=== PATIENT | male | born 1960 | race Caucasian/White ===

== ENCOUNTER 2018-06-27 15:23 | Observation (INO) | payer OTHER ==
[2018-06-27] MEDS ORDERED: TYLENOL 325 MG PO PRN (16:05)
[2018-06-27 16:53] LABS: BASOPHIL % 0.3 % (0.0-0.4); Basophil (Absolute #) 0.02 (0-0.4); Eosinophil % 2.1 % (0.00-5.0); Eosinophil (Absolute #) 0.16 (0-0.5); Hematocrit 38.7 % (42-50); Hemoglobin 12.7 gm/dl (12.5-18.0); Lymphocyte (Absolute #) 1.61 (1.0-4.6); Lymphocytes % 21.4 % (24.0-44.0); Mean Corpuscular Hemoglobin 30.5 pg (26-32); Mean Corpuscular Hgb Concent. 32.8 g/dl (32-36); Mean Platelet Volume 10.3 fl (6-9.5); Monocyte (Absolute #) 0.84 (0.0-1.3); Monocytes % 11.2 % (0.0-12.0); Platelet Count 250 K/mm3 (150-450); Red Blood Count 4.16 M/mm3 (4.1-5.6); Red Cell Distribution Width 14.2 % (11.5-14.0); White Blood Count 7.5 K/mm3 (4.0-10.5)
[2018-06-27] MEDS ORDERED: DUONEB 0.5-3 MG/3 ml Neb IH PRN (16:54)
[2018-06-27] MEDS: Advair Hfa 115/21 Common canister IH SCH (16:56)
--- NOTE | 2018-06-27 17:01 | XRAY ---
Indication: Bilateral leg swelling. 2-dimensional sonogram and color Doppler imaging of the major venous vessels of the left and right leg was performed. Comparison: None Right leg demonstrates occluding thrombus in the distal femoral and popliteal veins. No other thrombus seen in the remaining examined deep venous vessels of the left and right leg including greater saphenous veins. Patent veins demonstrates normal compressibility. Venous waveforms are normal with and without augmentation. Impression: 1. Right leg DVT in the distal femoral and popliteal veins. 2. Left leg negative for DVT.
[2018-06-27 17:03] LABS: ALBUMIN 3.8 g/dL (3.5-5.0); ALKALINE PHOSPHATASE 82 U/L (38-126); ANION GAP 12.2 MEQ/L (5-15); BLOOD UREA NITROGEN 16 mg/dL (9-20); CHLORIDE 104 mmol/L (98-107); Calcium 9.1 mg/dL (8.4-10.2); Carbon Dioxide 29 mmol/L (22-30); Creatinine 1 0.82 mg/dL (0.66-1.25); Glucose 88 mg/dL (74-106); Potassium 4.9 mmol/L (3.5-5.1); SGOT/AST 29 U/L (17-59); SGPT/ALT 28 U/L (0-50); SODIUM 140 mmol/L (137-145)
[2018-06-27 17:18] LABS: INR 1.12 (0.8-3.0)
[2018-06-27] MEDS: XARELTO 10 MG TABLET PO SCH (17:51)
[2018-06-27] MEDS: Sodium Chloride 0.9% 1000 ML 1,000 ML IV SCH (17:51)
[2018-06-27] MEDS ORDERED: ENOXAPARIN SODIUM SQ SCH (18:00)
[2018-06-27] MEDS: Seroquel 100 MG PO SCH (21:50)
[2018-06-27] MEDS ORDERED: QUETIAPINE FUMARATE 300 MG PO SCH (22:00)
[2018-06-27] MEDS ORDERED: MOTRIN 400 MG PO PRN (22:23)
[2018-06-28] MEDS: Advair Hfa 115/21 Common canister IH SCH (06:21)
[2018-06-28] MEDS: Sodium Chloride 0.9% 1000 ML 1,000 ML IV SCH (06:22)
--- NOTE | 2018-06-28 08:42 | XRAY ---
Indication: Cough, short of breath, and elevated d-dimer. Multiple contiguous axial images obtained through the chest using 80 cc Isovue 370 contrast and PE protocol. Comparison: None There is good opacification of the pulmonary arteries. Nonoccluding thrombi seen in the distal left main pulmonary artery extending into the left upper and left lower lobe segmental branches. Additional nonoccluding thrombi seen throughout the right lung segmental branches. Heart is not enlarged. Aorta is normal in course and caliber. Left hilar calcified nodes. No pathologic mediastinal/hilar lymphadenopathy. Examination of the lung parenchyma demonstrates a few bilateral calcified granulomas and mild bibasilar dependent atelectasis. No suspicious pulmonary mass, infiltrate, consolidation, or effusion. Bony thorax intact with minimal degenerative changes throughout the spine. Limited upper abdomen demonstrates mild fatty liver. Impression: 1. Diffuse bilateral nonoccluding pulmonary emboli. No distal pulmonary infarct. 2. Incidental fatty liver and evidence for old granulomatous disease. Comment: Preliminary report was given immediately following the exam. CT DI 21.96
[2018-06-28] MEDS ORDERED: ENOXAPARIN SODIUM SQ SCH ×2 (10:00→18:00)
[2018-06-28] MEDS: XARELTO 10 MG TABLET PO SCH (11:00)
[2018-06-28] MEDS: Seroquel 100 MG PO SCH (11:10)
--- NOTE | 2018-06-28 12:16 | PCM.SSS ---
History of Present Illness - Chief Complaint Chief Complaint: right leg pain and swelling History of Present Illness: is a 57 year old male.came to office with pain in right leg, for 2 weeks - Review of Systems Constitutional: No Fever, No Chills Eyes: No Symptoms Ears, Nose, & Throat: No Symptoms Respiratory: Orthopnea, Short Of Breath, Wheezing, No Cough Cardiac: No Chest Pain, No Edema, No Syncope Abdominal/Gastrointestinal: No Abdominal Pain, No Nausea, No Vomiting, No Diarrhea Genitourinary Symptoms: No Dysuria Musculoskeletal: No Back Pain, No Neck Pain Skin: No Rash Neurological: No Dizziness, No Focal Weakness, No Sensory Changes Psychological: No Symptoms Endocrine: No Symptoms Hematologic/Lymphatic: No Symptoms Immunological/Allergic: No Symptoms Medications & Allergies Home Medications: Home Medication List Albuterol 8 gm Mdi Hfa [Ventolin Hfa MDI] 2 puff IH QID 06/27/18 [History Confirmed 06/27/18] Fluticasone/Salmeterol [Advair 100-50 Diskus] 1 puff IH DAILY 06/27/18 [History Confirmed 06/27/18] Quetiapine Fumarate [Seroquel] 300 mg PO BID 06/27/18 [History Confirmed ] Allergies/Adverse Reactions: Allergies Allergy/AdvReac Type Severity Reaction Status Date / Time No Known Drug Allergies Allergy Unverified 06/27/18 15:49 - Past Medical History Past Medical History: Yes Neurological History: No Pertinent History ENT History: No Pertinent History Cardiac History: No Pertinent History Respiratory History: Bronchitis, COPD Endocrine Medical History: No Pertinent History Musculoskelatal History: Arthritis GI Medical History: No Pertinent History History: No Pertinent History Pyscho-Social History: Bipolar Male Reproductive Disorders: No Pertinent History Comment: HEP C - Past Surgical History Past Surgical History: Yes Musculskeletal Surgical Hx: Other Other Surgical History: CYST REMOVAL, TENDON RE-ATTACHMENT LEFT FOREARM - Social History Smoking Status: Former smoker Alcohol: None Drug Use: none - Physical Exam Vital Signs: Vital Signs - 24 hr Temp Pulse Resp BP Pulse Ox 06/28/18 12:00 16 06/28/18 08:00 16 06/28/18 07:10 98.3 F 79 16 121/63 92 L 06/28/18 06:22 79 16 92 L 06/28/18 04:00 99.0 F 83 17 105/63 95 06/28/18 00:00 20 06/27/18 23:48 101.2 F 101 H 20 119/57 97 06/27/18 20:19 98.2 F 96 H 22 132/78 98 06/27/18 20:00 22 06/27/18 16:55 92 H 20 97 06/27/18 15:53 98.6 F 91 H 18 123/75 97 06/27/18 15:41 98.6 F 91 H 18 123/75 97 06/27/18 15:39 98.6 F 91 H 18 123/75 97 General Appearance: no apparent distress, alert Neurologic Exam: alert, oriented x 3, cooperative, normal mood/affect, nml cerebellar function, nml station & gait, sensation nml, No motor deficits Eye Exam: PERRL/EOMI, eyes nml inspection Ears, Nose, Throat Exam: normal ENT inspection, TMs normal, pharynx normal, moist mucous membranes Neck Exam: normal inspection, non-tender, supple, full range of motion Respiratory Exam: diminished breath sounds, wheezing, No respiratory distress Cardiovascular Exam: regular rate/rhythm, normal heart sounds, normal peripheral pulses Gastrointestinal/Abdomen Exam: soft, normal bowel sounds, No tenderness, No mass Back Exam: normal inspection, normal range of motion, No CVA tenderness, No vertebral tenderness Extremity Exam: normal inspection, normal range of motion, pelvis stable Skin Exam: normal color, warm, dry, No rash Lymphatic Exam: No adenopathy Results - Labs Lab/Micro Results: Lab Results-Last 24 Hours 06/27/18 06/27/18 06/27/18 Range/Units 16:51 16:51 16:51 WBC 7.5 (4.0-10.5) K/mm3 RBC 4.16 (4.1-5.6) M/mm3 Hgb 12.7 (12.5-18.0) gm/dl Hct 38.7 L (42-50) % MCV 93.0 (78-100) fl MCH 30.5 (26-32) pg MCHC 32.8 (32-36) g/dl RDW 14.2 H (11.5-14.0) % Plt Count 250 (150-450) K/mm3 MPV 10.3 H (6-9.5) fl Gran % 65.0 (36.0-66.0) % Eos # (Auto) 0.16 (0-0.5) Absolute Lymphs (auto) 1.61 (1.0-4.6) Absolute Monos (auto) 0.84 (0.0-1.3) Lymphocytes % 21.4 L (24.0-44.0) % Monocytes % 11.2 (0.0-12.0) % Eosinophils % 2.1 (0.00-5.0) % Basophils % 0.3 (0.0-0.4) % Absolute Granulocytes 4.90 (1.4-6.9) Basophils # 0.02 (0-0.4) PT (8.83-12.87) SECONDS INR (0.8-3.0) APTT (24.1-36.1) SECONDS D-Dimer 6641 H* (215-500) ng/mL Sodium 140 (137-145) mmol/L Potassium 4.9 (3.5-5.1) mmol/L Chloride 104 (98-107) mmol/L Carbon Dioxide 29 (22-30) mmol/L Anion Gap 12.2 (5-15) MEQ/L BUN 16 (9-20) mg/dL Creatinine 0.82 (0.66-1.25) mg/dL Estimated GFR > 60.0 ML/MIN Glucose 88 (74-106) mg/dL Calcium 9.1 (8.4-10.2) mg/dL Total Bilirubin 0.30 (0.2-1.3) mg/dL AST 29 (17-59) U/L ALT 28 (0-50) U/L Alkaline Phosphatase 82 (38-126) U/L Serum Total Protein 7.0 (6.3-8.2) g/dL Albumin 3.8 (3.5-5.0) g/dL 06/27/18 Range/Units 16:51 WBC (4.0-10.5) K/mm3 RBC (4.1-5.6) M/mm3 Hgb (12.5-18.0) gm/dl Hct (42-50) % MCV (78-100) fl MCH (26-32) pg MCHC (32-36) g/dl RDW (11.5-14.0) % Plt Count (150-450) K/mm3 MPV (6-9.5) fl Gran % (36.0-66.0) % Eos # (Auto) (0-0.5) Absolute Lymphs (auto) (1.0-4.6) Absolute Monos (auto) (0.0-1.3) Lymphocytes % (24.0-44.0) % Monocytes % (0.0-12.0) % Eosinophils % (0.00-5.0) % Basophils % (0.0-0.4) % Absolute Granulocytes (1.4-6.9) Basophils # (0-0.4) PT 13.0 H (8.83-12.87) SECONDS INR 1.12 (0.8-3.0) APTT 25.0 (24.1-36.1) SECONDS D-Dimer (215-500) ng/mL Sodium (137-145) mmol/L Potassium (3.5-5.1) mmol/L Chloride (98-107) mmol/L Carbon Dioxide (22-30) mmol/L Anion Gap (5-15) MEQ/L BUN (9-20) mg/dL Creatinine (0.66-1.25) mg/dL Estimated GFR ML/MIN Glucose (74-106) mg/dL Calcium (8.4-10.2) mg/dL Total Bilirubin (0.2-1.3) mg/dL AST (17-59) U/L ALT (0-50) U/L Alkaline Phosphatase (38-126) U/L Serum Total Protein (6.3-8.2) g/dL Albumin (3.5-5.0) g/dL - Radiology Impressions Radiology Exams & Impressions: Radiology Procedures Category Date Time Status CHEST WITH CONTRAST [CT] Urgent Exams 06/27/18 18:15 Completed VENOUS BILATERAL EXTREMITY [US] Stat Exams 06/27/18 16:49 Completed - Other Procedures and Tests Respiratory Therapy 06/27/18 16:55 Respiratory Therapy Assessment DAILY Assessment/Plan (1) Bilateral pulmonary embolism Current Visit: Yes Status: Acute Onset Date: ~06/27/18 Code(s): I26.99 - OTHER PULMONARY EMBOLISM WITHOUT ACUTE COR PULMONALE (2) Bilateral leg pain Current Visit: Yes Status: Acute Onset Date: ~06/27/18 Code(s): M79.604 - PAIN IN RIGHT LEG; M79.605 - PAIN IN LEFT LEG (3) D-dimer, elevated Current Visit: Yes Status: Acute Onset Date: ~06/27/18 Code(s): R79.89 - OTHER SPECIFIED ABNORMAL FINDINGS OF BLOOD CHEMISTRY (4) Localized swelling of both lower legs Current Visit: Yes Status: Acute Onset Date: ~06/27/18 Code(s): R22.43 - LOCALIZED SWELLING, MASS AND LUMP, LOWER LIMB, BILATERAL (5) Right leg DVT Current Visit: Yes Status: Acute Onset Date: ~06/27/18 Qualifiers: Affected thrombotic vein of extremity: popliteal Code(s): I82.401 - ACUTE EMBOLISM AND THOMBOS UNSP DEEP VEINS OF [facility] Summary - Hospital Course Hospital Course: Last Vital Signs Temp 98.3 F 06/28/18 07:10 Pulse 79 06/28/18 07:10 Resp 16 06/28/18 12:00 BP 121/63 06/28/18 07:10 Pulse Ox 92 L 06/28/18 07:10 Allergies No Known Drug Allergies Allergy (Unverified 06/27/18 15:49) Active Medications Acetaminophen (Tylenol 325 Mg) 325 mg PO Q4H PRN PRN PRN Reason: PAIN, FEVER, HEADACHE Stop: 07/27/18 16:04 Last Admin: 06/28/18 00:10 Dose: 325 mg Albuterol/Ipratropium (Duoneb 0.5-3 Mg/3 Ml Neb) 3 ml IH Q4HPRN PRN PRN Reason: SHORTNESS OF BREATH/WHEEZING Stop: 07/27/18 16:53 Sodium Chloride (Sodium Chloride 0.9% 1000 Ml) 1,000 mls @ 100 mls/hr IV .Q10H AYO Stop: 07/27/18 16:14 Last Admin: 06/28/18 06:22 Dose: 100 mls/hr Ibuprofen (Motrin 400 Mg) 400 mg PO QID PRN PRN PRN Reason: PAIN Stop: 07/27/18 22:22 Quetiapine Fumarate (Seroquel 100 Mg) 300 mg PO BID AYO Stop: 07/27/18 21:59 Last Admin: 06/28/18 11:10 Dose: Not Given Rivaroxaban (Xarelto 10 Mg Tablet) 20 mg PO BID [facility] Stop: 07/27/18 18:29 Last Admin: 06/28/18 11:00 Dose: 20 mg Fluticasone/Salmeterol (Advair Hfa 115/21 Common Canister*) 2 puff IH BIDRT [facility] Stop: 07/27/18 18:59 Last Admin: 06/28/18 06:21 Dose: 2 puff Intake & Output 06/28/18 06/29/18 11:59 11:59 Intake Total 1331 Balance 1331 Weight 85 kg Orders 06/27/18 16:05 Place in Observation ROUTINE Acetaminophen 325 mg [Tylenol 325 mg] 325 mg PO Q4H PRN PRN 06/27/18 16:06 Up Ad Belen TOLERATED 06/27/18 16:15 NaCl 0.9% 1000 ml [Sodium Chloride 0.9% 1000 ML] 1,000 ml IV 100 mls/hr 06/27/18 16:54 Albuterol/Ipratropium 3ml Neb* [DUONEB 0.5-3 MG/3 ml Neb] 3 ml IH Q4HPRN PRN 06/27/18 16:55 Pulse Oximetry .spot check Respiratory Therapy Assessment DAILY 06/27/18 18:30 Rivaroxaban 10 mg Tablet [Xarelto 10 mg Tablet] 20 mg PO BID 06/27/18 19:00 Fluticasone/Salmeterol 115/21 [Advair Hfa 115/21 Common canister*] 2 puff IH BIDRT 06/27/18 22:00 Quetiapine Fumarate 100 mg [Seroquel 100 MG] 300 mg PO BID 06/27/18 22:23 Ibuprofen 400 mg [Motrin 400 mg] 400 mg PO QID PRN PRN 06/27/18 Dinner Regular Diet 06/28/18 09:36 Consult Pulmonology ROUTINE 06/28/18 10:57 FIBRINOGEN Routine Protein S Total Antigen Routine Protien C, Total Antigen Routine Lab Tests 06/27/18 06/27/18 06/27/18 16:51 16:51 16:51 WBC 7.5 RBC 4.16 Hgb 12.7 Hct 38.7 L MCV 93.0 MCH 30.5 MCHC 32.8 RDW 14.2 H Plt Count 250 MPV 10.3 H Gran % 65.0 Eos # (Auto) 0.16 Absolute Lymphs (auto) 1.61 Absolute Monos (auto) 0.84 Lymphocytes % 21.4 L Monocytes % 11.2 Eosinophils % 2.1 Basophils % 0.3 Absolute Granulocytes 4.90 Basophils # 0.02 PT INR APTT D-Dimer 6641 H* Sodium 140 Potassium 4.9 Chloride 104 Carbon Dioxide 29 Anion Gap 12.2 BUN 16 Creatinine 0.82 Estimated GFR > 60.0 Glucose 88 Calcium 9.1 Total Bilirubin 0.30 AST 29 ALT 28 Alkaline Phosphatase 82 Serum Total Protein 7.0 Albumin 3.8 06/27/18 16:51 WBC RBC Hgb Hct MCV MCH MCHC RDW Plt Count MPV Gran % Eos # (Auto) Absolute Lymphs (auto) Absolute Monos (auto) Lymphocytes % Monocytes % Eosinophils % Basophils % Absolute Granulocytes Basophils # PT 13.0 H INR 1.12 APTT 25.0 D-Dimer Sodium Potassium Chloride Carbon Dioxide Anion Gap BUN Creatinine Estimated GFR Glucose Calcium Total Bilirubin AST ALT Alkaline Phosphatase Serum Total Protein Albumin - Vitals & Intake/Output Vital Signs: Vital Signs Temperature 98.3 F 06/28/18 07:10 Pulse Rate 79 06/28/18 07:10 Respiratory Rate 16 06/28/18 12:00 Blood Pressure 121/63 06/28/18 07:10 O2 Sat by Pulse Oximetry 92 L 06/28/18 07:10 Intake & Output: Intake & Output 06/26/18 06/27/18 06/28/18 06/29/18 11:59 11:59 11:59 11:59 Intake Total 1331 Balance 1331 Weight 85 kg - Lab Result Diagrams: 06/27/18 16:51 06/27/18 16:51 Lab Results-Last 24 Hrs: Lab Results-Last 24 Hours 06/27/18 06/27/18 06/27/18 Range/Units 16:51 16:51 16:51 WBC 7.5 (4.0-10.5) K/mm3 RBC 4.16 (4.1-5.6) M/mm3 Hgb 12.7 (12.5-18.0) gm/dl Hct 38.7 L (42-50) % MCV 93.0 (78-100) fl MCH 30.5 (26-32) pg MCHC 32.8 (32-36) g/dl RDW 14.2 H (11.5-14.0) % Plt Count 250 (150-450) K/mm3 MPV 10.3 H (6-9.5) fl Gran % 65.0 (36.0-66.0) % Eos # (Auto) 0.16 (0-0.5) Absolute Lymphs (auto) 1.61 (1.0-4.6) Absolute Monos (auto) 0.84 (0.0-1.3) Lymphocytes % 21.4 L (24.0-44.0) % Monocytes % 11.2 (0.0-12.0) % Eosinophils % 2.1 (0.00-5.0) % Basophils % 0.3 (0.0-0.4) % Absolute Granulocytes 4.90 (1.4-6.9) Basophils # 0.02 (0-0.4) PT (8.83-12.87) SECONDS INR (0.8-3.0) APTT (24.1-36.1) SECONDS D-Dimer 6641 H* (215-500) ng/mL Sodium 140 (137-145) mmol/L Potassium 4.9 (3.5-5.1) mmol/L Chloride 104 (98-107) mmol/L Carbon Dioxide 29 (22-30) mmol/L Anion Gap 12.2 (5-15) MEQ/L BUN 16 (9-20) mg/dL Creatinine 0.82 (0.66-1.25) mg/dL Estimated GFR > 60.0 ML/MIN Glucose 88 (74-106) mg/dL Calcium 9.1 (8.4-10.2) mg/dL Total Bilirubin 0.30 (0.2-1.3) mg/dL AST 29 (17-59) U/L ALT 28 (0-50) U/L Alkaline Phosphatase 82 (38-126) U/L Serum Total Protein 7.0 (6.3-8.2) g/dL Albumin 3.8 (3.5-5.0) g/dL 06/27/18 Range/Units 16:51 WBC (4.0-10.5) K/mm3 RBC (4.1-5.6) M/mm3 Hgb (12.5-18.0) gm/dl Hct (42-50) % MCV (78-100) fl MCH (26-32) pg MCHC (32-36) g/dl RDW (11.5-14.0) % Plt Count (150-450) K/mm3 MPV (6-9.5) fl Gran % (36.0-66.0) % Eos # (Auto) (0-0.5) Absolute Lymphs (auto) (1.0-4.6) Absolute Monos (auto) (0.0-1.3) Lymphocytes % (24.0-44.0) % Monocytes % (0.0-12.0) % Eosinophils % (0.00-5.0) % Basophils % (0.0-0.4) % Absolute Granulocytes (1.4-6.9) Basophils # (0-0.4) PT 13.0 H (8.83-12.87) SECONDS INR 1.12 (0.8-3.0) APTT 25.0 (24.1-36.1) SECONDS D-Dimer (215-500) ng/mL Sodium (137-145) mmol/L Potassium (3.5-5.1) mmol/L Chloride (98-107) mmol/L Carbon Dioxide (22-30) mmol/L Anion Gap (5-15) MEQ/L BUN (9-20) mg/dL Creatinine (0.66-1.25) mg/dL Estimated GFR ML/MIN Glucose (74-106) mg/dL Calcium (8.4-10.2) mg/dL Total Bilirubin (0.2-1.3) mg/dL AST (17-59) U/L ALT (0-50) U/L Alkaline Phosphatase (38-126) U/L Serum Total Protein (6.3-8.2) g/dL Albumin (3.5-5.0) g/dL - Radiology Exams Ordered Rad Exams-Entire Visit: Radiology Procedures Category Date Time Status CHEST WITH CONTRAST [CT] Urgent Exams 06/27/18 18:15 Completed VENOUS BILATERAL EXTREMITY [US] Stat Exams 06/27/18 16:49 Completed - Procedures and Test Procedures and Tests throughout Hospitalization: Therapy Orders & Screens 06/27/18 16:26 OT Screen per Nursing Assess Comment: Protocol Order Physician Instructions: Greater than 3 points order OT Admission Screening Reason For Exam: Triggered on Admission Diagnosis: right leg cellulitis Open Wound/Cellutlitis/Pressure Ulcers: Yes Acute Fx/ORIF/Change in wt bearing status: No Severe MUSCULOSKELETAL pain: No ADL Dysfunction: Yes Acute CVA w/Hemiparesis/Hemiplegia: No Decreased Functional Mobility/Strength: No Sprain/Strain: No Acute Post-op Mobility Dysfunction: No Total Points: 8 PT Screen per Nursing Assess ONCE Comment: Protocol Order Physician Instructions: Greater than 3 points order PT Admission Screenin Reason For Exam: Triggered on Admission Diagnosis: right leg cellulitis Open Wound/Cellutlitis/Pressure Ulcers: Yes Acute Fx/ORIF/Change in wt bearing status: No Severe MUSCULOSKELETAL pain: No ADL Dysfunction: Yes Acute CVA w/Hemiparesis/Hemiplegia: No Decreased Functional Mobility/Strength: No Sprain/Strain: No Acute Post-op Mobility Dysfunction: No Total Points: 8 06/27/18 16:54 Respiratory MDI BID Comment: ADVAIR 115/21 BID Diagnosis: right leg cellulitis 06/27/18 16:55 Respiratory Nebulizer UD Comment: DUONEB Q4PRN Diagnosis: right leg cellulitis Respiratory Therapy Assessment DAILY Comment: Diagnosis: right leg cellulitis - Discharge Disposition: Home, Self-Care Condition: Stable Prescriptions: No Action Albuterol 8 gm Mdi Hfa [Ventolin Hfa MDI] 2 puff IH QID Quetiapine Fumarate [Seroquel] 300 mg PO BID Fluticasone/Salmeterol [Advair 100-50 Diskus] 1 puff IH DAILY Follow up with: CHERI LOPEZ MD [Primary Care Provider] - 07/06/18 2:30 pm ([facility])
[2018-06-28 13:19] VITALS: BP 106/62; PULSE 89; O2SAT 95
[2018-06-29 07:52] LABS: FIBRINOGEN 337 mg/dL (180-350)
--- NOTE | 2018-06-29 07:55 | CONS ---
CONSULT DATE: 06/28/2018 REASON FOR CONSULT: Bilateral pulmonary emboli and deep venous thrombosis. HISTORY: Junior Moreno is a 57 year-old male who has been hospitalized with complaints of shortness of breath. The patient reported that he recently got released from assisted. He has been experiencing chest pressure along with shortness of breath. The patient was noted to have a significantly positive D-dimer. A CT chest was obtained that showed bilateral pulmonary emboli along with lower extremity deep venous thrombosis on Doppler's. He has been started on anticoagulation which was switched over to Xarelto last night. He does report improvement in shortness of breath since. The patient denies prior history of deep venous thrombosis, pleural effusion or any common pulmonary problems. PAST MEDICAL HISTORY: The patient reports being bipolar. He is however not regularly followed by a psychiatrist. PAST SURGICAL HISTORY: No recent surgery. PERSONAL AND SOCIAL HISTORY: He is a former smoker. He also used to smoke marijuana however reportedly smoked since being incarcerated six months ago. FAMILY HISTORY: His mother has Factor V Leiden iron deficiency and is on anticoagulation for the same. MEDICATIONS: Home and current medications are reviewed. ALLERGIES: NKDA. ALLERGIES NOTED. PHYSICAL EXAMINATION: This is a middle aged male who appears comfortable. The patient is on room air maintaining good oxygen saturation. Vital signs noted. HEENT: Normocephalic. Oral exam unremarkable. NECK: Supple. CVS: First and second heart sounds are normal, regular, rhythmic. RESPIRATORY: Shows diminished breath sounds, clear to auscultation. ABDOMEN: Soft. EXTREMITIES: No edema is noted. LABORATORY DATA AND TESTS: X-rays and diagnostic tests were all reviewed. REVIEW OF SYSTEMS: Negative for any weight loss in fact the patient has gained weight. He denies any chest pain, any neurologic symptoms or any intestinal symptoms. ASSESSMENT: This is a 57 year old male admitted with: 1) Bilateral pulmonary emboli along with lower extremity deep venous thrombosis. 2) Likely secondary hypercoag state from Factor V Leiden mutation history. 3) History of nicotine addiction. 4) History of bipolar disorder. RECOMMENDATIONS: The patient is doing well on Xarelto. Risks, benefits and precautions to be observed while being on oral anticoagulant for this test. I recommended that the patient be treated for at least six months along with a repeat CT chest as well as venous Doppler's in view of same. If these show complete resolution of clot burden, the patient can be briefly taken off to run diagnostic tests to see if he also suffers from Factor V Leiden deficiency. In which case he would need lifelong anticoagulation. I advised the patient to refrain smoking cigarettes or using illicit drugs. Advised to follow up with me in two weeks or earlier as needed. Will also get pulmonary function test at later point. Thank you for allowing me to participate in the care of this patient.
[2018-07-02 01:27] LABS: Protein S Total Antigen 144 % (84-134)
== END 2018-06-28 16:30 | disposition home or self-care (01) ==
LOC: MED SURG 15:23
PROVIDERS: ADMIT General Practice; ATTEND General Practice
DX: I26.99 Other pulmonary embolism without acute cor pulmonale (principal); M79.605 Pain in left leg; R22.43 Localized swelling, mass and lump, lower limb, bilateral; I82.401 Acute embolism and thrombosis of unspecified deep veins of right lower extremity; L03.115 Cellulitis of right lower limb; B19.20 Unspecified viral hepatitis C without hepatic coma; F31.60 Bipolar disorder, current episode mixed, unspecified
CPT/HCPCS: 36415; 71260; 80053; 85025; 85302; 85305; 85379; 85384; 85610; 85730; 93970; 94640; 94760; G0378; J1650; A9270-GY

== ENCOUNTER 2018-07-22 10:00 | Emergency (ER) | payer OTHER ==
--- NOTE | 2018-07-22 10:27 | ERPHSYRPT ---
- History of Present Illness Time Seen by Provider: 07/22/18 10:19 Source: patient Exam Limitations: no limitations Physician History: The patient is a 57-year-old male with his mother complaining of worsening right lower leg redness and swelling. The patient was diagnosed with a right leg DVT in the distal femoral and popliteal veins per ultrasound done on . Also at that time he had diffuse bilateral nonoccluding pulmonary emboli by chest CT for PE no 06/27/18. He is been taking Xarelto 50 mg twice a day since June 27. In the interim his leg was red and swollen but improved with levofloxacin 750 mg daily. He finished the levofloxacin yesterday. His leg has been less swollen and less red when he keeps it elevated that he was told by his doctor to begin walking. For the past couple days he's been walking more in his leg is now red, warm, and swollen. He is not any more short of breath and he has been over the past month. His past medical history is significant for right leg DVT, bilateral pulmonary emboli. Method of Injury: other (DVT, cellulitis) Occurred: days ago (3) Quality: tightness Severity of Pain-Max: moderate Severity of Pain-Current: moderate Lower Extremities Pain: leg: right Modifying Factors: Improves With: other (elevation) Associated Symptoms: none Allergies/Adverse Reactions: No Known Drug Allergies Allergy (Verified 07/22/18 10:20) Home Medications: Albuterol 8 gm Mdi Hfa [Ventolin Hfa MDI] 2 puff IH QID 06/27/18 [History] Fluticasone/Salmeterol [Advair 100-50 Diskus] 1 puff IH DAILY 06/27/18 [History] Quetiapine Fumarate [Seroquel] 300 mg PO BID 06/27/18 [History] - Review of Systems Constitutional: No Fever, No Chills Eyes: No Symptoms Ears, Nose, & Throat: No Symptoms Respiratory: No Cough, No Dyspnea, No Dyspnea on Exertion (NARANJO) Cardiac: No Chest Pain, No Edema, No Syncope Abdominal/Gastrointestinal: No Abdominal Pain, No Nausea, No Vomiting, No Diarrhea Genitourinary Symptoms: No Dysuria Musculoskeletal: No Back Pain, No Neck Pain Skin: Cellulitis, No Rash Neurological: No Dizziness, No Focal Weakness, No Sensory Changes Psychological: No Symptoms Endocrine: No Symptoms Hematologic/Lymphatic: No Symptoms Immunological/Allergic: No Symptoms All Other Systems: Reviewed and Negative - Past Medical History Pertinent Past Medical History: Yes Neurological History: No Pertinent History ENT History: No Pertinent History Cardiac History: No Pertinent History Respiratory History: Bronchitis, COPD Endocrine Medical History: No Pertinent History Musculoskeletal History: Arthritis GI Medical History: No Pertinent History History: No Pertinent History Psycho-Social History: Bipolar Male Reproductive Disorders: No Pertinent History Other Medical History: HEP C - Past Surgical History Past Surgical History: Yes Musculoskeletal: Other Other Surgical History: CYST REMOVAL, TENDON RE-ATTACHMENT LEFT FOREARM - Social History Smoking Status: Former smoker Drug Use: none - Nursing Vital Signs Nursing Vital Signs: Initial Vital Signs Temperature 97.6 F 07/22/18 10:05 Pulse Rate 78 07/22/18 10:05 Respiratory Rate 20 07/22/18 10:05 Blood Pressure 129/82 07/22/18 10:05 O2 Sat by Pulse Oximetry 97 07/22/18 10:05 Pain Scale Pain Intensity 0 - Physical Exam General Appearance: alert Eyes, Ears, Nose, Throat Exam: moist mucous membranes Neck Exam: non-tender, supple Cardiovascular/Respiratory Exam: chest non-tender, normal breath sounds, regular rate/rhythm, no respiratory distress, No rhonchi, No wheezing Gastrointestinal/Abdominal Exam: non-tender, guarding Back Exam: normal inspection, No vertebral tenderness Hips Exam: bilateral: non-tender, normal inspection Legs Exam: right leg: swelling, other (right lower leg: distal erythema, calf swelling, warmth, posterior tenderness.), left leg: non-tender, normal inspection Knees Exam: bilateral knee: non-tender, normal inspection Ankle Exam: bilateral ankle: non-tender, normal inspection Foot Exam: bilateral foot: non-tender, normal inspection Neuro/Tendon Exam: normal sensation, normal motor functions Mental Status Exam: alert, oriented x 3, cooperative Skin Exam: warm, rash (erythema) SpO2 Interpretation: normal Oxygen Delivery: Room Air - Radiology Ultrasound Exam Right Venous Lower Extremity Ultrasound: discussed w/radiologist (discussed with U/S tech: no change in extent of right leg DVT compared to U/S 06/27/18,) Ordered Tests: Active Orders 24 hr Category Date Time Status IV Insertion STAT Care 07/22/18 10:34 Active Pulse Oximetry (ED) STAT Care 07/22/18 10:34 Active VENOUS UNILAT/LIMITED EXTREMIT [US] Stat Exams 07/22/18 Ordered BLOOD CULTURE Stat Lab 07/22/18 10:50 Received CBC W DIFF Stat Lab 07/22/18 10:45 Completed CMP Stat Lab 07/22/18 10:45 Completed D-DIMER QUANTITATION Stat Lab 07/22/18 10:45 Completed Lactic Acid Stat Lab 07/22/18 10:34 Results NT PRO BNP Stat Lab 07/22/18 10:45 Completed TROPONIN Q3H Lab 07/22/18 10:45 Completed TROPONIN Q3H Lab 07/22/18 13:45 Ordered TROPONIN Q3H Lab 07/22/18 16:45 Ordered TROPONIN Q3H Lab 07/22/18 19:45 Ordered TROPONIN Q3H Lab 07/22/18 22:45 Ordered Lab/Rad Data: Laboratory Result Diagrams 07/22/18 10:45 07/22/18 10:45 Laboratory Results 07/22/18 07/22/18 07/22/18 Range/Units 10:45 10:45 10:45 WBC (4.0-10.5) K/mm3 RBC (4.1-5.6) M/mm3 Hgb (12.5-18.0) gm/dl Hct (42-50) % MCV (78-100) fl MCH (26-32) pg MCHC (32-36) g/dl RDW (11.5-14.0) % Plt Count (150-450) K/mm3 MPV (6-9.5) fl Gran % (36.0-66.0) % Eos # (Auto) (0-0.5) Absolute Lymphs (auto) (1.0-4.6) Absolute Monos (auto) (0.0-1.3) Lymphocytes % (24.0-44.0) % Monocytes % (0.0-12.0) % Eosinophils % (0.00-5.0) % Basophils % (0.0-0.4) % Absolute Granulocytes (1.4-6.9) Basophils # (0-0.4) D-Dimer 1102 H* (215-500) ng/mL Sodium 139 (137-145) mmol/L Potassium 4.1 (3.5-5.1) mmol/L Chloride 104 (98-107) mmol/L Carbon Dioxide 25 (22-30) mmol/L Anion Gap 13.3 (5-15) MEQ/L BUN 15 (9-20) mg/dL Creatinine 0.89 (0.66-1.25) mg/dL Estimated GFR > 60.0 ML/MIN Glucose 113 H (74-106) mg/dL Lactic Acid (0.4-2.0) Calcium 8.9 (8.4-10.2) mg/dL Total Bilirubin 0.40 (0.2-1.3) mg/dL AST 23 (17-59) U/L ALT 19 (0-50) U/L Alkaline Phosphatase 90 (38-126) U/L Troponin I < 0.012 (0.000-0.034) ng/mL NT-Pro-B Natriuret Pep 138 (0-900) pg/mL Serum Total Protein 7.5 (6.3-8.2) g/dL Albumin 4.1 (3.5-5.0) g/dL 07/22/18 07/22/18 Range/Units 10:45 10:34 WBC 5.1 (4.0-10.5) K/mm3 RBC 4.29 (4.1-5.6) M/mm3 Hgb 13.1 (12.5-18.0) gm/dl Hct 39.4 L (42-50) % MCV 91.8 (78-100) fl MCH 30.5 (26-32) pg MCHC 33.2 (32-36) g/dl RDW 14.5 H (11.5-14.0) % Plt Count 175 (150-450) K/mm3 MPV 10.8 H (6-9.5) fl Gran % 51.3 (36.0-66.0) % Eos # (Auto) 0.07 (0-0.5) Absolute Lymphs (auto) 1.76 (1.0-4.6) Absolute Monos (auto) 0.65 (0.0-1.3) Lymphocytes % 34.4 (24.0-44.0) % Monocytes % 12.7 H (0.0-12.0) % Eosinophils % 1.4 (0.00-5.0) % Basophils % 0.2 (0.0-0.4) % Absolute Granulocytes 2.63 (1.4-6.9) Basophils # 0.01 (0-0.4) D-Dimer (215-500) ng/mL Sodium (137-145) mmol/L Potassium (3.5-5.1) mmol/L Chloride (98-107) mmol/L Carbon Dioxide (22-30) mmol/L Anion Gap (5-15) MEQ/L BUN (9-20) mg/dL Creatinine (0.66-1.25) mg/dL Estimated GFR ML/MIN Glucose (74-106) mg/dL Lactic Acid 2.1 H (0.4-2.0) Calcium (8.4-10.2) mg/dL Total Bilirubin (0.2-1.3) mg/dL AST (17-59) U/L ALT (0-50) U/L Alkaline Phosphatase (38-126) U/L Troponin I (0.000-0.034) ng/mL NT-Pro-B Natriuret Pep (0-900) pg/mL Serum Total Protein (6.3-8.2) g/dL Albumin (3.5-5.0) g/dL - Progress Progress: unchanged Progress Note: 07/22/18 12:39 I discussed the patient's condition and ultrasound findings with Dr. Lopez who recommends sending the patient home without being placed on any additional antibiotics or any change of the plan for Xarelto which will be to change Xarelto at20 mg daily tomorrow. Discussed with Dr.: Brian Will see patient in: office Counseled pt/family regarding: lab results, diagnosis, need for follow-up - Departure Time of Disposition: 12:41 Departure Disposition: Home (DVT) Clinical Impression: DVT, femoral, chronic Condition: Stable Critical Care Time: No Referrals: CHERI LOPEZ MD [Primary Care Provider] - Additional Instructions: DVT in the right femoral vein. The ultrasound has not shown any increase in the DVT. At this time we do not have cellulitis. I spoke with Dr. Lopez who recommends that you do not take any more antibiotics at this time. You are to begin the new regimen of Xarelto 20 mg daily. Continue elevating your right leg as well as getting up and walking around frequently. Follow-up with Dr. Castellanos next week. If you have any significant change, do not hesitate to return to the ER.
[2018-07-22 10:51] LABS: Lactic Acid 2.1 (0.4-2.0)
[2018-07-22 11:00] LABS: BASOPHIL % 0.2 % (0.0-0.4); Basophil (Absolute #) 0.01 (0-0.4); Eosinophil % 1.4 % (0.00-5.0); Eosinophil (Absolute #) 0.07 (0-0.5); Granulocyte Absolute (ANC) 2.63 (1.4-6.9); Granulocytes % 51.3 % (36.0-66.0); Hematocrit 39.4 % (42-50); Hemoglobin 13.1 gm/dl (12.5-18.0); Lymphocyte (Absolute #) 1.76 (1.0-4.6); Lymphocytes % 34.4 % (24.0-44.0); Mean Cell Volume 91.8 fl (78-100); Mean Corpuscular Hemoglobin 30.5 pg (26-32); Mean Corpuscular Hgb Concent. 33.2 g/dl (32-36); Mean Platelet Volume 10.8 fl (6-9.5); Monocyte (Absolute #) 0.65 (0.0-1.3); Monocytes % 12.7 % (0.0-12.0); Platelet Count 175 K/mm3 (150-450); Red Blood Count 4.29 M/mm3 (4.1-5.6); Red Cell Distribution Width 14.5 % (11.5-14.0); White Blood Count 5.1 K/mm3 (4.0-10.5)
[2018-07-22 11:23] LABS: ALBUMIN 4.1 g/dL (3.5-5.0); ALKALINE PHOSPHATASE 90 U/L (38-126); ANION GAP 13.3 MEQ/L (5-15); BLOOD UREA NITROGEN 15 mg/dL (9-20); CHLORIDE 104 mmol/L (98-107); Calcium 8.9 mg/dL (8.4-10.2); Carbon Dioxide 25 mmol/L (22-30); Creatinine 1 0.89 mg/dL (0.66-1.25); Glucose 113 mg/dL (74-106); NT PRO BNP 138 pg/mL (0-900); Potassium 4.1 mmol/L (3.5-5.1); SGOT/AST 23 U/L (17-59); SGPT/ALT 19 U/L (0-50); SODIUM 139 mmol/L (137-145); Total Protein 7.5 g/dL (6.3-8.2)
[2018-07-22 13:11] VITALS: BP 126/95; PULSE 64; O2SAT 99
--- NOTE | 2018-07-22 19:32 | XRAY ---
Indication: Swelling and erythema. DVT. Two-dimensional sonogram and color Doppler imaging of the major venous vessels of the right leg was performed. Comparison: June 27, 2018. Stable occluding thrombus in the distal femoral and popliteal veins with now non-occluding thrombus in the posterior tibial vein.. Remaining common femoral, proximal femoral, greater saphenous veins and tibial peroneal trunk negative for thrombus. Impression: Stable occluding thrombus in the distal femoral and popliteal vein with now nonoccluding thrombus in the posterior tibial vein. Comment: Preliminary report was given.
== END 2018-07-22 13:10 | disposition home or self-care (01) ==
LOC: ED 10:00
DX: I82.511 Chronic embolism and thrombosis of right femoral vein (principal); M79.604 Pain in right leg; Z79.899 Other long term (current) drug therapy; Z79.01 Long term (current) use of anticoagulants
CPT/HCPCS: 36000; 36415; 80053; 83605; 83880; 84484; 85025; 85379; 87040; 93971; 99284

== ENCOUNTER 2018-08-07 12:35 | Emergency (ER) | payer OTHER ==
[2018-08-07] MEDS ORDERED: DUONEB 0.5-3 MG/3 ml Neb IH ONE ×2 (12:55→13:09)
--- NOTE | 2018-08-07 12:58 | ERPHSYRPT ---
- History of Present Illness Time Seen by Provider: 08/07/18 12:56 Source: patient Patient Subjective Stated Complaint: ill for 3 days, coughing up clear sputum.has PE in both lungs and both legs . dx a month ago. Triage Nursing Assessment: pt alert, resp easy, skin w/d/p.chest clear,but states he is more sob than normal. Physician History: mild to mod shortness of breath for 3 days, +cough, hx PE and DVT, pleuritic chest pain mild off and on, no fever, speech fluent Allergies/Adverse Reactions: No Known Drug Allergies Allergy (Verified 08/07/18 12:39) Home Medications: Albuterol 8 gm Mdi Hfa [Ventolin Hfa MDI] 2 puff IH QID 06/27/18 [History] Fluticasone/Salmeterol [Advair 100-50 Diskus] 1 puff IH DAILY 06/27/18 [History] Quetiapine Fumarate [Seroquel] 300 mg PO BID 06/27/18 [History] Hx Tetanus, Diphtheria Vaccination/Date Given: No Hx Influenza Vaccination/Date Given: No Hx Pneumococcal Vaccination/Date Given: Yes - Review of Systems Constitutional: No Fever Eyes: No Vision Changes Ears, Nose, & Throat: No Mouth Pain Respiratory: Cough, Dyspnea Cardiac: Chest Pain Abdominal/Gastrointestinal: No Abdominal Pain Genitourinary Symptoms: No Dysuria Musculoskeletal: No Neck Pain Skin: No Rash Neurological: No Dizziness - Past Medical History Pertinent Past Medical History: Yes Neurological History: No Pertinent History ENT History: No Pertinent History Cardiac History: No Pertinent History Respiratory History: Bronchitis, COPD Endocrine Medical History: No Pertinent History Musculoskeletal History: Arthritis GI Medical History: No Pertinent History History: No Pertinent History Psycho-Social History: Bipolar Male Reproductive Disorders: No Pertinent History Other Medical History: HEP C - Past Surgical History Past Surgical History: Yes Musculoskeletal: Other Other Surgical History: CYST REMOVAL, TENDON RE-ATTACHMENT LEFT FOREARM - Social History Smoking Status: Former smoker Exposure to second hand smoke: No Drug Use: none Patient Lives Alone: No - Nursing Vital Signs Nursing Vital Signs: Initial Vital Signs Respiratory Rate 18 08/07/18 12:39 O2 Sat by Pulse Oximetry 97 08/07/18 12:39 Pain Scale Pain Intensity 5 - Physical Exam General Appearance: no apparent distress Eye Exam: PERRL/EOMI Ears, Nose, Throat Exam: moist mucous membranes Neck Exam: normal inspection Respiratory Exam: lungs clear, No respiratory distress Cardiovascular Exam: regular rate/rhythm Gastrointestinal/Abdomen Exam: soft, No tenderness Extremity Exam: normal range of motion Neurologic Exam: alert, oriented x 3 Skin Exam: warm, dry SpO2 Interpretation: normal SpO2: 100 Oxygen Delivery: Room Air - Course Nursing assessment & vital signs reviewed: Yes EKG Interpreted by Me: Other (nsr 89 no stemi) - CT Exams Chest CT Interpretation: Discussed w/radiologist, Other (improving PE bilaterally) Ordered Tests: Active Orders 24 hr Category Date Time Status Dog Races Manager STAT Care 08/07/18 12:53 Active EKG-ER Only STAT Care 08/07/18 12:53 Active IV Insertion STAT Care 08/07/18 12:53 Active Pulse Oximetry (ED) STAT Care 08/07/18 12:53 Active CHEST 1 VIEW (PORTABLE) Stat Exams 08/07/18 12:53 Completed CHEST WITH CONTRAST [CT] Stat Exams 08/07/18 14:08 Completed BLOOD CULTURE Stat Lab 08/07/18 12:50 Received CBC W DIFF Stat Lab 08/07/18 12:50 Completed CMP Stat Lab 08/07/18 12:50 Completed Lactic Acid Stat Lab 08/07/18 13:20 Completed Lactic Acid Stat Lab 08/07/18 15:24 Ordered NT PRO BNP Stat Lab 08/07/18 12:50 Completed PROTIME WITH INR Stat Lab 08/07/18 12:50 Completed TROPONIN Q3H Lab 08/07/18 12:50 Completed TROPONIN Q3H Lab 08/07/18 16:00 Ordered TROPONIN Q3H Lab 08/07/18 19:00 Ordered TROPONIN Q3H Lab 08/07/18 22:00 Ordered TROPONIN Q3H Lab 08/08/18 01:00 Ordered Peak Expiratory Flow Rate ONCE RT 08/07/18 13:14 Active Respiratory Nebulizer STAT RT 08/07/18 12:55 Completed Respiratory Therapy Assessment DAILY RT 08/07/18 13:13 Active Medication Summary Discontinued Medications Generic Name Dose Route Start Last Admin Trade Name Freq PRN Reason Stop Dose Admin Albuterol/Ipratropium 3 ml 08/07/18 12:55 08/07/18 13:09 Duoneb 0.5-3 Mg/3 Ml Neb IH 08/07/18 12:56 3 ml STAT ONE Administration Albuterol/Ipratropium Confirm 08/07/18 13:09 Duoneb 0.5-3 Mg/3 Ml Neb Administered 08/07/18 13:10 Dose 3 ml IH .STK-MED ONE Lab/Rad Data: Laboratory Result Diagrams 08/07/18 12:50 08/07/18 12:50 Laboratory Results 08/07/18 08/07/18 08/07/18 Range/Units 13:20 12:50 12:50 WBC (4.0-10.5) K/mm3 RBC (4.1-5.6) M/mm3 Hgb (12.5-18.0) gm/dl Hct (42-50) % MCV (78-100) fl MCH (26-32) pg MCHC (32-36) g/dl RDW (11.5-14.0) % Plt Count (150-450) K/mm3 MPV (6-9.5) fl Gran % (36.0-66.0) % Eos # (Auto) (0-0.5) Absolute Lymphs (auto) (1.0-4.6) Absolute Monos (auto) (0.0-1.3) Lymphocytes % (24.0-44.0) % Monocytes % (0.0-12.0) % Eosinophils % (0.00-5.0) % Basophils % (0.0-0.4) % Absolute Granulocytes (1.4-6.9) Basophils # (0-0.4) PT 12.3 (8.83-12.87) SECONDS INR 1.06 (0.8-3.0) Sodium (137-145) mmol/L Potassium (3.5-5.1) mmol/L Chloride (98-107) mmol/L Carbon Dioxide (22-30) mmol/L Anion Gap (5-15) MEQ/L BUN (9-20) mg/dL Creatinine (0.66-1.25) mg/dL Estimated GFR ML/MIN Glucose (74-106) mg/dL Lactic Acid 2.3 H (0.4-2.0) Calcium (8.4-10.2) mg/dL Total Bilirubin (0.2-1.3) mg/dL AST (17-59) U/L ALT (0-50) U/L Alkaline Phosphatase (38-126) U/L Troponin I < 0.012 (0.000-0.034) ng/mL NT-Pro-B Natriuret Pep (0-900) pg/mL Serum Total Protein (6.3-8.2) g/dL Albumin (3.5-5.0) g/dL 08/07/18 08/07/18 Range/Units 12:50 12:50 WBC 7.7 (4.0-10.5) K/mm3 RBC 4.74 (4.1-5.6) M/mm3 Hgb 14.2 (12.5-18.0) gm/dl Hct 43.9 (42-50) % MCV 92.6 (78-100) fl MCH 30.0 (26-32) pg MCHC 32.3 (32-36) g/dl RDW 14.8 H (11.5-14.0) % Plt Count 246 (150-450) K/mm3 MPV 11.8 H (6-9.5) fl Gran % 56.9 (36.0-66.0) % Eos # (Auto) 0.03 (0-0.5) Absolute Lymphs (auto) 2.63 (1.0-4.6) Absolute Monos (auto) 0.62 (0.0-1.3) Lymphocytes % 34.3 (24.0-44.0) % Monocytes % 8.1 (0.0-12.0) % Eosinophils % 0.4 (0.00-5.0) % Basophils % 0.3 (0.0-0.4) % Absolute Granulocytes 4.37 (1.4-6.9) Basophils # 0.02 (0-0.4) PT (8.83-12.87) SECONDS INR (0.8-3.0) Sodium 141 (137-145) mmol/L Potassium 4.6 (3.5-5.1) mmol/L Chloride 106 (98-107) mmol/L Carbon Dioxide 25 (22-30) mmol/L Anion Gap 14.6 (5-15) MEQ/L BUN 16 (9-20) mg/dL Creatinine 0.98 (0.66-1.25) mg/dL Estimated GFR > 60.0 ML/MIN Glucose 164 H (74-106) mg/dL Lactic Acid (0.4-2.0) Calcium 9.4 (8.4-10.2) mg/dL Total Bilirubin 0.40 (0.2-1.3) mg/dL AST 27 (17-59) U/L ALT 23 (0-50) U/L Alkaline Phosphatase 76 (38-126) U/L Troponin I (0.000-0.034) ng/mL NT-Pro-B Natriuret Pep 88.4 (0-900) pg/mL Serum Total Protein 8.0 (6.3-8.2) g/dL Albumin 4.5 (3.5-5.0) g/dL - Progress Progress: improved Progress Note: 08/07/18 15:37 d/w Dr CLARITZA Puente, will see the pt in his office this week, continue present medical regimen, return if worse Discussed with Dr.: Booker Carlson Will see patient in: office Counseled pt/family regarding: lab results, diagnosis, need for follow-up, rad results - Departure Time of Disposition: 15:38 Departure Disposition: Home Clinical Impression: SOB (shortness of breath) Condition: Stable Critical Care Time: No Referrals: CHERI LOPEZ MD [Primary Care Provider] - Instructions: Shortness of Breath (Dyspnea) (DC)
[2018-08-07 13:24] LABS: Lactic Acid 2.3 (0.4-2.0)
--- NOTE | 2018-08-07 13:28 | XRAY ---
Indication: Short of breath and upper back pain. COPD. Comparison: None Portable apical lordotic chest demonstrates normal heart and lungs. Bony thorax intact with mild degenerative changes.
[2018-08-07 13:33] LABS: BASOPHIL % 0.3 % (0.0-0.4); Basophil (Absolute #) 0.02 (0-0.4); Eosinophil % 0.4 % (0.00-5.0); Eosinophil (Absolute #) 0.03 (0-0.5); Granulocyte Absolute (ANC) 4.37 (1.4-6.9); Granulocytes % 56.9 % (36.0-66.0); Hematocrit 43.9 % (42-50); Hemoglobin 14.2 gm/dl (12.5-18.0); Lymphocyte (Absolute #) 2.63 (1.0-4.6); Lymphocytes % 34.3 % (24.0-44.0); Mean Cell Volume 92.6 fl (78-100); Mean Corpuscular Hgb Concent. 32.3 g/dl (32-36); Mean Platelet Volume 11.8 fl (6-9.5); Monocyte (Absolute #) 0.62 (0.0-1.3); Monocytes % 8.1 % (0.0-12.0); Platelet Count 246 K/mm3 (150-450); Red Blood Count 4.74 M/mm3 (4.1-5.6); Red Cell Distribution Width 14.8 % (11.5-14.0); White Blood Count 7.7 K/mm3 (4.0-10.5)
[2018-08-07 13:40] VITALS: PULSE 94
[2018-08-07 14:04] LABS: ALBUMIN 4.5 g/dL (3.5-5.0); ALKALINE PHOSPHATASE 76 U/L (38-126); ANION GAP 14.6 MEQ/L (5-15); BLOOD UREA NITROGEN 16 mg/dL (9-20); CHLORIDE 106 mmol/L (98-107); Calcium 9.4 mg/dL (8.4-10.2); Carbon Dioxide 25 mmol/L (22-30); Creatinine 1 0.98 mg/dL (0.66-1.25); Glucose 164 mg/dL (74-106); NT PRO BNP 88.4 pg/mL (0-900); Potassium 4.6 mmol/L (3.5-5.1); SGOT/AST 27 U/L (17-59); SGPT/ALT 23 U/L (0-50); SODIUM 141 mmol/L (137-145)
[2018-08-07 14:39] LABS: INR 1.06 (0.8-3.0)
--- NOTE | 2018-08-07 15:05 | XRAY ---
Indication: Short of breath and chest pain. History bilateral pulmonary emboli. Multiple contiguous axial images obtained through the chest using 80 cc Isovue 370 contrast and PE protocol. Comparison: June 27, 2018. Satisfactory opacification of the pulmonary arteries to include the lobar and segmental branches. Previous bilateral pulmonary emboli have cleared with probable tiny eccentric residual at the origin of the lingula branch. Heart is not enlarged. Aorta is negative for aneurysm/dissection. Stable left perihilar calcified nodes. No pathologic mediastinal/hilar lymphadenopathy. Examination of the lung parenchyma again demonstrates a few tiny bilateral calcified granulomas and minimal bibasilar atelectasis/scarring. No suspicious pulmonary mass, infiltrate, or effusion. Bony thorax intact again with minimal degenerative changes throughout the spine. Limited upper abdomen again demonstrates mild fatty liver and a few splenic calcified granulomas. Impression: 1. Interval bilateral PE clearing with probable tiny residual at the origin of the lingula branch. 2. No new cardiopulmonary abnormalities. 3. Stable fatty liver and evidence for old granulomatous disease. CT DI 20.16
[2018-08-07 15:43] VITALS: BP 130/71; O2SAT 98
== END 2018-08-07 15:56 | disposition home or self-care (01) ==
LOC: ED 12:35
DX: R06.02 Shortness of breath (principal); R05 Cough; R07.9 Chest pain, unspecified; J44.9 Chronic obstructive pulmonary disease, unspecified
CPT/HCPCS: 36415; 71045; 71260; 80053; 83605; 83880; 84484; 85025; 85610; 87040; 93005; 93041; 94150; 94640; 99284; A9270-GY

== ENCOUNTER 2019-09-03 18:01 | Emergency (ER) | payer MEDICAID, OTHER ==
[2019-09-03] MEDS ORDERED: XARELTO 10 MG TABLET PO STA (18:45)
--- NOTE | 2019-09-03 18:54 | ERPHSYRPT ---
- History of Present Illness Source: patient Exam Limitations: no limitations Patient Subjective Stated Complaint: pt states he has blood clots in his legs and lungs. Pt states that his legs are swollen. Pt denies leg pain and chest pain. Pt staes he has a hx of bllod clots and has been out of blood thinners for 2 weeks. Triage Nursing Assessment: Pt complains of swelling in his lower legs and feet. Legs dont apear remarkable for swelling. Pt denies chest pain and shortness of breath at this time, but has been in the recent past Activities at Onset: none Severity of Dyspnea-Max: none Possible Cause: frequent episodes Modifying Factors: Improves With: nothing International travel in last 2 weeks: No Hx Tetanus, Diphtheria Vaccination/Date Given: Yes (2017) Hx Influenza Vaccination/Date Given: No (2017) Hx Pneumococcal Vaccination/Date Given: No Immunizations Up to Date: Yes <CRAIG BOWLES - Last Filed: 09/03/19 18:47> <ANTONY MARION - Last Filed: 09/03/19 20:30> - History of Present Illness Time Seen by Provider: 09/03/19 18:45 Physician History: is a 59-year-old male with a 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 He was on also and was incarcerated and placed on warfarin lost his insurance and now has been on no anticoagulation for some time.he does complain of some shortness of breath swelling and pain in the calves and swelling of the feet. (CRAIG BOWLES) Allergies/Adverse Reactions: No Known Drug Allergies Allergy (Verified 08/07/18 12:39) Home Medications: Albuterol 8 gm Mdi Hfa [Ventolin Hfa MDI] 2 puff IH QID 06/27/18 [History] Fluticasone/Salmeterol [Advair 100-50 Diskus] 1 puff IH DAILY 06/27/18 [History] Quetiapine Fumarate [Seroquel] 300 mg PO BID 06/27/18 [History] - Review of Systems Constitutional: No Fever, No Chills Eyes: No Symptoms Ears, Nose, & Throat: No Symptoms Respiratory: No Cough, No Dyspnea Cardiac: No Chest Pain, No Edema, No Syncope Abdominal/Gastrointestinal: No Abdominal Pain, No Nausea, No Vomiting, No Diarrhea Genitourinary Symptoms: No Dysuria Musculoskeletal: No Back Pain, No Neck Pain Skin: No Rash Neurological: No Dizziness, No Focal Weakness, No Sensory Changes Psychological: No Symptoms Endocrine: No Symptoms All Other Systems: Reviewed and Negative <CRAIG BOWLES Filed: 09/03/19 18:47> - Past Medical History Pertinent Past Medical History: Yes Neurological History: No Pertinent History ENT History: No Pertinent History Cardiac History: Deep Vein Thrombosis Respiratory History: COPD Endocrine Medical History: Other Musculoskeletal History: No Pertinent History GI Medical History: No Pertinent History History: No Pertinent History Psycho-Social History: Bipolar Male Reproductive Disorders: No Pertinent History Other Medical History: HEP C - Past Surgical History Past Surgical History: No Neuro Surgical History: No Pertinent History Cardiac: No Pertinent History Respiratory: No Pertinent History Gastrointestinal: No Pertinent History Genitourinary: No Pertinent History Musculoskeletal: No Pertinent History Male Surgical History: No Pertinent History Other Surgical History: CYST REMOVAL, TENDON RE-ATTACHMENT LEFT FOREARM - Social History Smoking Status: Current every day smoker How long have you smoked: 30 years Exposure to second hand smoke: Yes Drug Use: none Patient Lives Alone: Yes <CRAIG BOWLES Filed: 09/03/19 18:47> - Physical Exam General Appearance: mild distress, alert Eye Exam: PERRL/EOMI Neck Exam: normal inspection, supple Cardiovascular/Chest Exam: normal heart sounds, regular rate/rhythm Abdominal/Gastrointestinal Exam: soft, No tenderness, No distention, No mass Extremity Exam: non-tender, normal range of motion, normal inspection, no calf tenderness, no pedal edema Peripheral Pulses Exam: carotid (R): 2+, carotid (L): 2+ Neurologic Exam: alert, oriented x 3, cooperative, 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, sensation nml, No motor deficits Skin Exam: normal color, warm, No dry SpO2 Interpretation: normal SpO2: 96 O2 Delivery: Room Air <CRAIG BOWLES Last Filed: 09/03/19 18:47> - Nursing Vital Signs Nursing Vital Signs: Initial Vital Signs Pulse Rate 92 H 09/03/19 18:40 Respiratory Rate 16 09/03/19 18:40 Blood Pressure 129/82 09/03/19 18:40 O2 Sat by Pulse Oximetry 96 09/03/19 18:40 Pain Scale Pain Intensity 0 - Course Nursing assessment & vital signs reviewed: Yes <CRAIG BOWLES - Last Filed: 09/03/19 18:47> Ordered Tests: Active Orders 24 hr Category Date Time Status CHEST WITH CONTRAST [CT] Stat Exams 09/03/19 18:41 Taken CBC W DIFF Stat Lab 09/03/19 18:40 Completed CMP Stat Lab 09/03/19 18:40 Completed D-DIMER QUANTITATION Stat Lab 09/03/19 18:40 Completed Lactic Acid Stat Lab 09/03/19 19:20 Completed PROTIME WITH INR Stat Lab 09/03/19 18:40 Completed PTT Stat Lab 09/03/19 18:40 Completed UA W/RFX UR CULTURE Stat Lab 09/03/19 18:41 Uncollected Medication Summary Discontinued Medications Generic Name Dose Route Start Last Admin Trade Name Freq PRN Reason Stop Dose Admin Rivaroxaban 10 mg 09/03/19 18:45 09/03/19 18:57 Xarelto 10 Mg Tablet PO 09/03/19 18:46 10 mg DAILY STA Administration Lab/Rad Data: Laboratory Result Diagrams 09/03/19 18:40 09/03/19 18:40 Laboratory Results 09/03/19 09/03/19 09/03/19 Range/Units 19:20 18:40 18:40 WBC (4.0-10.5) K/mm3 RBC (4.1-5.6) M/mm3 Hgb (12.5-18.0) gm/dl Hct (42-50) % MCV (78-100) fl MCH (26-32) pg MCHC (32-36) g/dl RDW (11.5-14.0) % Plt Count (150-450) K/mm3 MPV (6-9.5) fl Gran % (36.0-66.0) % Eos # (Auto) (0-0.5) Absolute Lymphs (auto) (1.0-4.6) Absolute Monos (auto) (0.0-1.3) Lymphocytes % (24.0-44.0) % Monocytes % (0.0-12.0) % Eosinophils % (0.00-5.0) % Basophils % (0.0-0.4) % Absolute Granulocytes (1.4-6.9) Basophils # (0-0.4) PT 12.3 (8.83-12.87) SECONDS INR 1.09 (0.8-3.0) APTT 27.4 (24.1-36.1) SECONDS D-Dimer 535 H* (215-500) ng/mL Sodium 141 (137-145) mmol/L Potassium 3.9 (3.5-5.1) mmol/L Chloride 106 (98-107) mmol/L Carbon Dioxide 28 (22-30) mmol/L Anion Gap 11.4 (5-15) MEQ/L BUN 16 (9-20) mg/dL Creatinine 0.76 (0.66-1.25) mg/dL Estimated GFR > 60.0 ML/MIN Glucose 92 (74-106) mg/dL Lactic Acid 1.7 (0.4-2.0) Calcium 8.7 (8.4-10.2) mg/dL Total Bilirubin 0.50 (0.2-1.3) mg/dL AST 35 (17-59) U/L ALT 35 (0-50) U/L Alkaline Phosphatase 76 (38-126) U/L Serum Total Protein 7.5 (6.3-8.2) g/dL Albumin 3.9 (3.5-5.0) g/dL 09/03/ Range/Units 18:40 WBC 5.2 (4.0-10.5) K/mm3 RBC 4.12 (4.1-5.6) M/mm3 Hgb 12.8 (12.5-18.0) gm/dl Hct 38.2 L (42-50) % MCV 92.7 (78-100) fl MCH 31.1 (26-32) pg MCHC 33.5 (32-36) g/dl RDW 14.5 H (11.5-14.0) % Plt Count 202 (150-450) K/mm3 MPV 11.4 H (6-9.5) fl Gran % 48.8 (36.0-66.0) % Eos # (Auto) 0.03 (0-0.5) Absolute Lymphs (auto) 1.80 (1.0-4.6) Absolute Monos (auto) 0.83 (0.0-1.3) Lymphocytes % 34.4 (24.0-44.0) % Monocytes % 15.8 H (0.0-12.0) % Eosinophils % 0.6 (0.00-5.0) % Basophils % 0.4 (0.0-0.4) % Absolute Granulocytes 2.56 (1.4-6.9) Basophils # 0.02 (0-0.4) PT (8.83-12.87) SECONDS INR (0.8-3.0) APTT (24.1-36.1) SECONDS D-Dimer (215-500) ng/mL Sodium (137-145) mmol/L Potassium (3.5-5.1) mmol/L Chloride (98-107) mmol/L Carbon Dioxide (22-30) mmol/L Anion Gap (5-15) MEQ/L BUN (9-20) mg/dL Creatinine (0.66-1.25) mg/dL Estimated GFR ML/MIN Glucose (74-106) mg/dL Lactic Acid (0.4-2.0) Calcium (8.4-10.2) mg/dL Total Bilirubin (0.2-1.3) mg/dL AST (17-59) U/L ALT (0-50) U/L Alkaline Phosphatase (38-126) U/L Serum Total Protein (6.3-8.2) g/dL Albumin (3.5-5.0) g/dL <CRAIG BOWLES - Last Filed: 09/03/19 18:47> <ANTONY MARION - Last Filed: 09/03/19 20:30> - Progress Progress Note: 09/03/19 18:52 patient is off of anticoagulation because of his recent incarceration. My plan is to obtain a CTA of the chest to make sure he has no current pulmonary emboli and start him back on his xarelto. We will be transferring his care to Dr. Marion. (CRAIG BOWLES) 09/03/19 20:27 I have reevaluated the patient who appears well. His CTA shows no evidence of new pulmonary embolism. He'll be given a prescription for Xeralto and discharged home. (ANTONY MARION) <CRAIG BOWLES - Last Filed: 09/03/19 18:47> - Departure Departure Disposition: Home Critical Care Time: No <ANTONY MARION - Last Filed: 09/03/19 20:30> - Departure Clinical Impression: D-dimer, elevated, SOB (shortness of breath), Bilateral leg pain Condition: Good Referrals: NIKI JOHNSON [ACTIVE STAFF] - Prescriptions: Rivaroxaban 10 mg Tablet [Xarelto 10 mg Tablet] 10 mg PO DAILY 90 Days # 90 tablet
[2019-09-03 19:04] LABS: Absolute Neutrophil Ct (ANC) 2.56 (1.4-6.9); BASOPHIL % 0.4 % (0.0-0.4); Basophil (Absolute #) 0.02 (0-0.4); Eosinophil % 0.6 % (0.00-5.0); Eosinophil (Absolute #) 0.03 (0-0.5); Hematocrit 38.2 % (42-50); Hemoglobin 12.8 gm/dl (12.5-18.0); Lymphocytes % 34.4 % (24.0-44.0); Mean Cell Volume 92.7 fl (78-100); Mean Corpuscular Hemoglobin 31.1 pg (26-32); Mean Corpuscular Hgb Concent. 33.5 g/dl (32-36); Mean Platelet Volume 11.4 fl (6-9.5); Monocyte (Absolute #) 0.83 (0.0-1.3); Monocytes % 15.8 % (0.0-12.0); Neutrophil % 48.8 % (36.0-66.0); Platelet Count 202 K/mm3 (150-450); Red Blood Count 4.12 M/mm3 (4.1-5.6); Red Cell Distribution Width 14.5 % (11.5-14.0); White Blood Count 5.2 K/mm3 (4.0-10.5)
[2019-09-03 19:19] LABS: INR 1.09 (0.8-3.0); PROTIME 12.3 SECONDS (8.83-12.87)
[2019-09-03 19:21] LABS: PTT 27.4 SECONDS (24.1-36.1)
[2019-09-03 19:22] LABS: ALBUMIN 3.9 g/dL (3.5-5.0); ALKALINE PHOSPHATASE 76 U/L (38-126); ANION GAP 11.4 MEQ/L (5-15); BLOOD UREA NITROGEN 16 mg/dL (9-20); CHLORIDE 106 mmol/L (98-107); Calcium 8.7 mg/dL (8.4-10.2); Carbon Dioxide 28 mmol/L (22-30); Creatinine 1 0.76 mg/dL (0.66-1.25); Glucose 92 mg/dL (74-106); Potassium 3.9 mmol/L (3.5-5.1); SGOT/AST 35 U/L (17-59); SGPT/ALT 35 U/L (0-50); SODIUM 141 mmol/L (137-145); Total Protein 7.5 g/dL (6.3-8.2)
[2019-09-03 20:44] VITALS: BP 110/75; PULSE 91; O2SAT 98
--- NOTE | 2019-09-04 08:40 | XRAY ---
Indication: Short of breath. Pain in legs. History PE. Multiple contiguous axial images obtained through the chest using 80 cc Isovue 370 contrast and PE protocol or Comparison: December 14, 2018. There is satisfactory opacification of the pulmonary arteries to include the lobar and segmental branches. No filling defect or pulmonary embolus. Heart is not enlarged. Aorta is normal in course and caliber. Stable left perihilar calcified nodes. No pathologic mediastinal/hilar lymphadenopathy. Lungs are inflated again with minimal fibrosis/scarring and a few tiny calcified granulomas. No suspicious pulmonary mass, infiltrate, or effusion. Bony thorax intact again with minimal degenerative changes throughout the spine. Limited upper abdomen again demonstrates mild fatty liver and a few calcified splenic granulomas. Impression: 1. Negative pulmonary embolus. No new/acute cardiopulmonary abnormalities. 2. Stable fatty liver and evidence for old granulomatous disease. CT DI 18.46
== END 2019-09-03 20:44 | disposition home or self-care (01) ==
LOC: ED 18:01
DX: R79.89 Other specified abnormal findings of blood chemistry (principal); R06.02 Shortness of breath; M79.605 Pain in left leg; M79.604 Pain in right leg; Z79.899 Other long term (current) drug therapy; Z86.718 Personal history of other venous thrombosis and embolism; Z86.711 Personal history of pulmonary embolism; Z79.01 Long term (current) use of anticoagulants; J44.9 Chronic obstructive pulmonary disease, unspecified; B19.20 Unspecified viral hepatitis C without hepatic coma
CPT/HCPCS: 36415; 71260; 80053; 83605; 85025; 85379; 85610; 85730; 99284; A9270-GY

== ENCOUNTER 2020-04-16 14:41 | Emergency (ER) | payer MEDICAID, OTHER ==
[2020-04-16] MEDS ORDERED: MORPHINE SULFATE 4 MG INJ IV ONE (14:46)
[2020-04-16] MEDS ORDERED: Sodium Chloride 0.9% 1000 ML 1,000 ML IV STA (14:46)
[2020-04-16] MEDS ORDERED: Zofran 4 MG/2 ML VIAL IV ONE (14:46)
[2020-04-16] MEDS ORDERED: MORPHINE SULFATE 4 MG INJ ONE (15:00)
[2020-04-16] MEDS ORDERED: Zofran 4 MG/2 ML VIAL ONE (15:00)
[2020-04-16] MEDS ORDERED: Sodium Chloride 0.9% 1000 ML 1,000 ML ONE (15:00)
[2020-04-16 15:03] LABS: Absolute Neutrophil Ct (ANC) 6.16 (1.4-6.9); BASOPHIL % 0.1 % (0.0-0.4); Basophil (Absolute #) 0.01 (0-0.4); Eosinophil % 0.3 % (0.00-5.0); Eosinophil (Absolute #) 0.02 (0-0.5); Hematocrit 42.2 % (42-50); Hemoglobin 14.2 gm/dl (12.5-18.0); Lymphocyte (Absolute #) 1.01 (1.0-4.6); Lymphocytes % 12.8 % (24.0-44.0); Mean Cell Volume 91.1 fl (78-100); Mean Corpuscular Hemoglobin 30.7 pg (26-32); Mean Corpuscular Hgb Concent. 33.6 g/dl (32-36); Mean Platelet Volume 11.5 fl (7.5-11.0); Monocyte (Absolute #) 0.68 (0.0-1.3); Monocytes % 8.6 % (0.0-12.0); Neutrophil % 78.2 % (36.0-66.0); Platelet Count 185 K/mm3 (150-450); Red Blood Count 4.63 M/mm3 (4.1-5.6); Red Cell Distribution Width 14.2 % (11.5-14.0); White Blood Count 7.9 K/mm3 (4.0-10.5)
--- NOTE | 2020-04-16 15:15 | ERPHSYRPT ---
- History of Present Illness Time Seen by Provider: 04/16/20 14:50 Historian: patient Exam Limitations: no limitations Patient Subjective Stated Complaint: pt to ER by EMS with complaints of abdominal pain x 2 hours. denies vomiting. Triage Nursing Assessment: pt A&O, pt brought in by EMS. pt rolling around on the bed in pain. Physician History: Patient is a 59-year-old male presents to our ED via EMS for evaluation of abdominal pain. Abdominal pain started approximately 2 hours prior to arrival. Pain described as an ache that is localized at the. Umbilical region. No associated trauma or fevers. No nausea vomiting or diaphoresis. Pain is constant. Pain worse with movement and palpation. Pain improved with rest. Patient voices no other complaints at this time. Timing/Duration: today Activities at Onset: none Quality: aching Abdominal Pain Onset Location: periumbilical Pain Radiation: no radiation Severity of Pain-Max: severe Severity of Pain-Current: moderate Modifying Factors: Improves With: movement, palpation Associated Symptoms: denies symptoms Previous symptoms: no prior history Allergies/Adverse Reactions: No Known Drug Allergies Allergy (Verified 04/16/20 14:52) Home Medications: Albuterol 8 gm Mdi Hfa [Ventolin Hfa MDI] 2 puff IH QID 06/27/18 [History] Fluticasone/Salmeterol [Advair 100-50 Diskus] 1 puff IH DAILY 06/27/18 [History] Quetiapine Fumarate [Seroquel] 300 mg PO BID 06/27/18 [History] Hx Tetanus, Diphtheria Vaccination/Date Given: Yes (2017) Hx Influenza Vaccination/Date Given: No (2017) Hx Pneumococcal Vaccination/Date Given: No Travel Risk - International Travel Have you traveled outside of the country in past 3 weeks: No - Coronavirus Screening Close contact with a COVID-19 positive Pt in past 14-21 Days: No - Review of Systems Constitutional: No Symptoms, No Fever, No Chills Eyes: No Symptoms Ears, Nose, & Throat: No Symptoms Respiratory: No Symptoms, No Cough, No Dyspnea Cardiac: No Symptoms, No Chest Pain, No Edema, No Syncope Abdominal/Gastrointestinal: No Symptoms, No Abdominal Pain, No Nausea, No Vomiting, No Diarrhea Genitourinary Symptoms: No Symptoms, No Dysuria Musculoskeletal: No Symptoms, No Back Pain, No Neck Pain Skin: No Symptoms, No Rash Neurological: No Symptoms, No Dizziness, No Focal Weakness, No Sensory Changes Psychological: No Symptoms Endocrine: No Symptoms Hematologic/Lymphatic: No Symptoms Immunological/Allergic: No Symptoms All Other Systems: Reviewed and Negative - Past Medical History Pertinent Past Medical History: Yes Neurological History: No Pertinent History ENT History: No Pertinent History Cardiac History: Deep Vein Thrombosis Respiratory History: COPD Endocrine Medical History: Other Musculoskeletal History: No Pertinent History GI Medical History: No Pertinent History History: No Pertinent History Psycho-Social History: Bipolar Male Reproductive Disorders: No Pertinent History Other Medical History: HEP C - Past Surgical History Past Surgical History: No Neuro Surgical History: No Pertinent History Cardiac: No Pertinent History Respiratory: No Pertinent History Gastrointestinal: No Pertinent History Genitourinary: No Pertinent History Musculoskeletal: No Pertinent History Male Surgical History: No Pertinent History Other Surgical History: CYST REMOVAL, TENDON RE-ATTACHMENT LEFT FOREARM - Social History Smoking Status: Current every day smoker How long have you smoked: 30 years Exposure to second hand smoke: Yes Drug Use: none Patient Lives Alone: Yes - Nursing Vital Signs Nursing Vital Signs: Initial Vital Signs Temperature 97.6 F 04/16/20 14:46 Pulse Rate 98 H 04/16/20 14:46 Respiratory Rate 20 04/16/20 14:46 O2 Sat by Pulse Oximetry 98 04/16/20 14:46 Pain Scale Pain Intensity 10 - Physical Exam General Appearance: severe distress (Patient is writhing in pain. Patient unable to relax for EKG.), alert Eye Exam: PERRL/EOMI, eyes nml inspection Ears, Nose, Throat Exam: normal ENT inspection, pharynx normal, moist mucous membranes Neck Exam: normal inspection, non-tender, supple, full range of motion Respiratory Exam: normal breath sounds, lungs clear, No respiratory distress Cardiovascular Exam: regular rate/rhythm, normal heart sounds Gastrointestinal/Abdomen Exam: soft, tenderness, guarding (Periumbilical tenderness to palpation.), No mass Back Exam: normal inspection, normal range of motion, No CVA tenderness, No vertebral tenderness Extremity Exam: normal inspection, normal range of motion, pelvis stable Neurologic Exam: alert, oriented x 3, cooperative, normal mood/affect, nml cerebellar function, sensation nml, No motor deficits Skin Exam: normal color, warm, dry SpO2 Interpretation: normal SpO2: 98 O2 Delivery: Room Air - Course Nursing assessment & vital signs reviewed: Yes EKG Interpreted by Me: RATE (80), Sinus Rhythm, NORMAL AXIS, NORMAL INTERVALS - CT Exams Other CT Interpretation: Tele-radiologist Report (Continued normal CTA of chest. Incidental old granulomatous disease. No new acute cardiopulmonary abnormalities.) Abdomen/Pelvis CT Interpretation: Tele-radiologist Report (Aortoiliac and minimal bilateral renal artery calcifications otherwise normal CT abdomen pelvis. Fluid distended jejunal bowel loops with wall thickening enhancement.) Ordered Tests: Active Orders 24 hr Category Date Time Status EKG-ER Only STAT Care 04/16/20 14:46 Active IV Insertion STAT Care 04/16/20 14:46 Active cath [Cath for Specimen-Straight] STAT Care 04/16/20 15:19 Active CTA ABD/PEL W AND/OR W/O CONTR [CT] Stat Exams 04/16/20 14:55 Completed CTA CHEST W AND/OR WO [CT] Stat Exams 04/16/20 14:55 Completed CBC W DIFF Stat Lab 04/16/20 14:57 Completed CMP Stat Lab 04/16/20 14:57 Completed LIPASE Stat Lab 04/16/20 14:57 Completed TROPONIN Q3H Lab 04/16/20 14:57 Completed TROPONIN Q3H Lab 04/16/20 18:15 Completed TROPONIN Q3H Lab 04/17/20 00:00 Ordered TROPONIN Q3H Lab 04/17/20 03:00 Ordered UA W/RFX UR CULTURE Stat Lab 04/16/20 Completed Urine Triage Profile Stat Lab 04/16/20 Completed Medication Summary Discontinued Medications Generic Name Dose Route Start Last Admin Trade Name Freq PRN Reason Stop Dose Admin Sodium Chloride 1,000 mls @ 999 mls/hr 04/16/20 14:46 04/16/20 16:11 Sodium Chloride 0.9% 1000 Ml IV 04/16/20 15:46 Infused .Q1H1M STA Infusion Sodium Chloride Confirm 04/16/20 15:00 Sodium Chloride 0.9% 1000 Ml Administered 04/16/20 15:01 Dose 1,000 mls @ ud .ROUTE .STK-MED ONE Lorazepam 1 mg 04/16/20 15:18 04/16/20 15:21 Ativan 2 Mg/1 Ml Vial IV 04/16/20 15:19 1 mg STAT ONE Administration Lorazepam Confirm 04/16/20 15:20 Ativan 2 Mg/1 Ml Vial Administered 04/16/20 15:21 Dose 2 mg .ROUTE .STK-MED ONE Morphine Sulfate 4 mg 04/16/20 14:46 04/16/20 15:02 Morphine Sulfate 4 Mg Inj IV 04/16/20 14:47 4 mg STAT ONE Administration Morphine Sulfate Confirm 04/16/20 15:00 Morphine Sulfate 4 Mg Inj Administered 04/16/20 15:01 Dose 4 mg .ROUTE .STK-MED ONE Ondansetron HCl 4 mg 04/16/20 14:46 04/16/20 15:02 Zofran 4 Mg/2 Ml Vial IV 04/16/20 14:47 4 mg STAT ONE Administration Ondansetron HCl Confirm 04/16/20 15:00 Zofran 4 Mg/2 Ml Vial Administered 04/16/20 15:01 Dose 4 mg .ROUTE .STK-MED ONE Lab/Rad Data: Laboratory Result Diagrams 04/16/20 14:57 04/16/20 14:57 Laboratory Results 04/16/20 04/16/20 04/16/20 Range/Units Unknown Unknown 18:15 WBC (4.0-10.5) K/mm3 RBC (4.1-5.6) M/mm3 Hgb (12.5-18.0) gm/dl Hct (42-50) % MCV (78-100) fl MCH (26-32) pg MCHC (32-36) g/dl RDW (11.5-14.0) % Plt Count (150-450) K/mm3 MPV (7.5-11.0) fl Gran % (36.0-66.0) % Eos # (Auto) (0-0.5) Absolute Lymphs (auto) (1.0-4.6) Absolute Monos (auto) (0.0-1.3) Lymphocytes % (24.0-44.0) % Monocytes % (0.0-12.0) % Eosinophils % (0.00-5.0) % Basophils % (0.0-0.4) % Absolute Granulocytes (1.4-6.9) Basophils # (0-0.4) Sodium (137-145) mmol/L Potassium (3.5-5.1) mmol/L Chloride (98-107) mmol/L Carbon Dioxide (22-30) mmol/L Anion Gap (5-15) MEQ/L BUN (9-20) mg/dL Creatinine (0.66-1.25) mg/dL Estimated GFR ML/MIN Glucose (74-106) mg/dL Calcium (8.4-10.2) mg/dL Total Bilirubin (0.2-1.3) mg/dL AST (17-59) U/L ALT (0-50) U/L Alkaline Phosphatase (38-126) U/L Troponin I < 0.012 (0.000-0.034) ng/mL Serum Total Protein (6.3-8.2) g/dL Albumin (3.5-5.0) g/dL Lipase (23-300) U/L Urine Color YELLOW (YELLOW) Urine Appearance CLEAR (CLEAR) Urine pH 5.0 (5-6) Ur Specific Jay 1.031 (1.005-1.025) Urine Protein NEGATIVE (Negative) Urine Ketones SMALL (NEGATIVE) Urine Blood NEGATIVE (0-5) Eladio/ul Urine Nitrite NEGATIVE (NEGATIVE) Urine Bilirubin NEGATIVE (NEGATIVE) Urine Urobilinogen 2 (0-1) mg/dL Ur Leukocyte Esterase NEGATIVE (NEGATIVE) Urine WBC (Auto) NONE (0-5) /HPF Urine RBC (Auto) 3-5 (0-2) /HPF U Epithel Cells (Auto) NONE (FEW) /HPF Urine Bacteria (Auto) NONE (NEGATIVE) /HPF Urine Mucus (Auto) SLIGHT (NEGATIVE) /HPF Urine Culture Reflexed NO (NO) Urine Glucose NEGATIVE (NEGATIVE) mg/dL Urine Opiates Level POSITIVE (NEGATIVE) Ur Methadone NEGATIVE (NEGATIVE) Urine Barbiturates NEGATIVE (NEGATIVE) Ur Phencyclidine (PCP) NEGATIVE (NEGATIVE) Urine Amphetamine POSITIVE (NEGATIVE) U Benzodiazepine Level NEGATIVE (NEGATIVE) Urine Cocaine NEGATIVE (NEGATIVE) Urine Marijuana (THC) POSITIVE (NEGATIVE) 04/16/20 04/16/20 04/16/20 Range/Units 14:57 14:57 14:57 WBC 7.9 (4.0-10.5) K/mm3 RBC 4.63 (4.1-5.6) M/mm3 Hgb 14.2 (12.5-18.0) gm/dl Hct 42.2 (42-50) % MCV 91.1 (78-100) fl MCH 30.7 (26-32) pg MCHC 33.6 (32-36) g/dl RDW 14.2 H (11.5-14.0) % Plt Count 185 (150-450) K/mm3 MPV 11.5 H (7.5-11.0) fl Gran % 78.2 H (36.0-66.0) % Eos # (Auto) 0.02 (0-0.5) Absolute Lymphs (auto) 1.01 (1.0-4.6) Absolute Monos (auto) 0.68 (0.0-1.3) Lymphocytes % 12.8 L (24.0-44.0) % Monocytes % 8.6 (0.0-12.0) % Eosinophils % 0.3 (0.00-5.0) % Basophils % 0.1 (0.0-0.4) % Absolute Granulocytes 6.16 (1.4-6.9) Basophils # 0.01 (0-0.4) Sodium 139 (137-145) mmol/L Potassium 4.2 (3.5-5.1) mmol/L Chloride 107 (98-107) mmol/L Carbon Dioxide 23 (22-30) mmol/L Anion Gap 12.7 (5-15) MEQ/L BUN 20 (9-20) mg/dL Creatinine 0.80 (0.66-1.25) mg/dL Estimated GFR > 60.0 ML/MIN Glucose 105 (74-106) mg/dL Calcium 9.3 (8.4-10.2) mg/dL Total Bilirubin 0.60 (0.2-1.3) mg/dL AST 37 (17-59) U/L ALT 27 (0-50) U/L Alkaline Phosphatase 76 (38-126) U/L Troponin I < 0.012 (0.000-0.034) ng/mL Serum Total Protein 8.0 (6.3-8.2) g/dL Albumin 4.4 (3.5-5.0) g/dL Lipase 26 (23-300) U/L Urine Color (YELLOW) Urine Appearance (CLEAR) Urine pH (5-6) Ur Specific Jay (1.005-1.025) Urine Protein (Negative) Urine Ketones (NEGATIVE) Urine Blood (0-5) Eladio/ul Urine Nitrite (NEGATIVE) Urine Bilirubin (NEGATIVE) Urine Urobilinogen (0-1) mg/dL Ur Leukocyte Esterase (NEGATIVE) Urine WBC (Auto) (0-5) /HPF Urine RBC (Auto) (0-2) /HPF U Epithel Cells (Auto) (FEW) /HPF Urine Bacteria (Auto) (NEGATIVE) /HPF Urine Mucus (Auto) (NEGATIVE) /HPF Urine Culture Reflexed (NO) Urine Glucose (NEGATIVE) mg/dL Urine Opiates Level (NEGATIVE) Ur Methadone (NEGATIVE) Urine Barbiturates (NEGATIVE) Ur Phencyclidine (PCP) (NEGATIVE) Urine Amphetamine (NEGATIVE) U Benzodiazepine Level (NEGATIVE) Urine Cocaine (NEGATIVE) Urine Marijuana (THC) (NEGATIVE) - Progress Progress: improved Progress Note: 04/16/20 19:31 Patient reassessed. Abdominal pain resolved. Work-up reveals enteritis. Troponin negative x2. Patient states he is ready for discharge. Patient ambulated throughout our ED. No recurrence of his pain. Family notified. Patient's will be going home with family member. Plan of care discussed with patient. We advised patient to follow-up with his primary care doctor within 48 hours for reevaluation. Counseled pt/family regarding: drug and/or alcohol abuse, lab results, diagnosis, need for follow-up, rad results - Departure Departure Disposition: Home Clinical Impression: Enteritis, Abdominal pain Condition: Stable Critical Care Time: No Referrals: CHERI LOPEZ MD [Primary Care Provider] - Instructions: Acute Abdomen (Belly Pain) Additional Instructions: Discharge/Care Plan JESUSITA PIKE was seen on 04/16/20 in the Emergency Room. The patient was counseled regarding Diagnosis,Lab results, Imaging studies, need for follow up and when to return to the Emergency Room. Prescriptions given: Discharge Note I have spoken with the patient and/or caregivers. I have explained the patient's condition, diagnosis and treatment plan based on the information available to me at this time. I have answered the patient's and/or caregiver's questions and addressed any concerns. The patient and/or caregivers have as good understanding of the patient's diagnosis, condition and treatment plan as can be expected at this point. The vital signs have been stable. The patient's condition is stable and appropriate for discharge from the emergency department. The patient will pursue further outpatient evaluation with the primary care physician or other designated or consulting physician as outlined in the discharge instructions. The patient and/or caregivers are agreeable to this plan of care and follow-up instructions have been explained in detail. The patient and/or caregivers have received these instruction. The patient/and or caregivers are aware that any significant change in condition or worsening of symptoms should prompt an immediate return to this or the closest emergency department or call 911.
[2020-04-16 15:16] LABS: ALBUMIN 4.4 g/dL (3.5-5.0); ALKALINE PHOSPHATASE 76 U/L (38-126); ANION GAP 12.7 MEQ/L (5-15); BLOOD UREA NITROGEN 20 mg/dL (9-20); CHLORIDE 107 mmol/L (98-107); Calcium 9.3 mg/dL (8.4-10.2); Carbon Dioxide 23 mmol/L (22-30); Glucose 105 mg/dL (74-106); LIPASE 26 U/L (23-300); Potassium 4.2 mmol/L (3.5-5.1); SGOT/AST 37 U/L (17-59); SGPT/ALT 27 U/L (0-50); SODIUM 139 mmol/L (137-145)
[2020-04-16] MEDS ORDERED: Ativan 2 MG/1 ML VIAL IV ONE (15:18)
[2020-04-16] MEDS ORDERED: Ativan 2 MG/1 ML VIAL ONE (15:20)
[2020-04-16 15:59] LABS: Barbiturate,Urine NEGATIVE (NEGATIVE); Benzodiazepine,Urine NEGATIVE (NEGATIVE); Cocaine,Urine NEGATIVE (NEGATIVE); Methadone,Urine NEGATIVE (NEGATIVE); Opiate,Urine POSITIVE (NEGATIVE); PCP,Urine NEGATIVE (NEGATIVE); THC,Urine POSITIVE (NEGATIVE)
[2020-04-16 16:00] LABS: Appearance CLEAR (CLEAR); Bilirubin NEGATIVE (NEGATIVE); Blood NEGATIVE Ery/ul (0-5); Glucose NEGATIVE (NEGATIVE); Ketones SMALL (NEGATIVE); Leukocyte Esterase NEGATIVE (NEGATIVE); Mucus SLIGHT /HPF (NEGATIVE); Nitrite NEGATIVE (NEGATIVE); Protein,Urine Dip NEGATIVE (Negative); Specific Gravity 1.031 (1.005-1.025); Urobilinogen 2 mg/dL (0-1)
--- NOTE | 2020-04-16 16:47 | XRAY ---
Indication: Abdomen pain. Aortic dissection. Conventional contrast enhanced CTA chest performed using 100 cc Isovue-370 contrast. Two-dimensional sagittal and coronal reformatted images obtained. Additional 3-dimensional reformatted images obtained using a separate workstation. Comparison: September 06, 2019. Aorta remains normal in course and caliber without aneurysm, dissection, or arteriosclerotic disease. Heart is not enlarged. No pulmonary embolus in the main left and right pulmonary arteries. Stable left perihilar calcified nodes. No pathologic mediastinal/hilar lymphadenopathy. Lungs demonstrate minimal bilateral dependent atelectasis. No suspicious pulmonary mass, infiltrate, or effusion. Bony thorax intact again with minimal degenerative changes throughout the spine. CTA abdomen reported separately. Impression: Continued normal CTA chest. Again incidental old granulomatous disease. No new/acute cardiopulmonary abnormalities.
[2020-04-16 16:50] LABS: Amphetamine,Urine POSITIVE (NEGATIVE)
--- NOTE | 2020-04-16 16:53 | XRAY ---
Indication: Abdomen pain. Aortic dissection. Conventional contrast enhanced CTA abdomen/pelvis performed using 100 cc Isovue-370 contrast. Two-dimensional sagittal and coronal reformatted images obtained. Additional 3-dimensional reformatted images obtained using a separate workstation. Comparison: None CTA chest reported separately. Abdominal aorta is normal in course and caliber without aneurysm/dissection. Minimal distal aortoiliac calcifications. Branching celiac, superior mesenteric, and inferior mesenteric arteries are normal in CTA appearance. A single renal artery supplies each kidney with very minimal calcifications at their origin. Stomach is mildly fluid distended. Noncontrasted stomach and bowel loops appear nonobstructed. Several jejunal bowel loops are mildly fluid distended up to 3.5 cm in diameter with mild wall thickening/enhancement favoring enteritis. Tiny pelvic free fluid presumed reactive. No free air. Normal appendix. Mild diffuse scattered fecal debris. Tiny splenic calcified granulomas. Remaining liver, gallbladder, pancreas, spleen, adrenal glands, kidneys, ureters, and bladder appear unremarkable. No pathologic retroperitoneal lymphadenopathy. Osseous structures intact with minimal degenerative changes throughout the spine. Impression: 1. Minimal aortoiliac and minimal bilateral renal artery calcifications. Otherwise normal CTA abdomen/pelvis. 2. Fluid distended jejunal bowel loops with wall thickening/enhancement favoring enteritis. Tiny pelvic free fluid presumed reactive. 3. Mild fecal stasis without obstruction.
[2020-04-16 19:19] VITALS: BP 136/87; PULSE 68
[2020-04-16 19:32] VITALS: O2SAT 98
== END 2020-04-16 19:35 | disposition home or self-care (01) ==
LOC: ED 14:41
DX: K52.9 Noninfective gastroenteritis and colitis, unspecified (principal); R10.9 Unspecified abdominal pain; B19.20 Unspecified viral hepatitis C without hepatic coma; Z72.0 Tobacco use
CPT/HCPCS: 36000; 36415; 71275; 74174; 80053; 80307; 81001; 83690; 84484; 85025; 93005; 96374; 96375; 99285; P9612; J2060; J2270; J2405